=== PATIENT | female | born 1975 | race Caucasian/White ===

== ENCOUNTER → 2019-12-03 | Outpatient (CLI) | payer OTHER ==
--- NOTE | 2019-12-03 16:06 | KCIC ---
Bilateral digital screening mammograms: Reason for examination: Routine screening. Comparison is made to previous study dated 10/12/2014. Interpretation was made with the benefit of CAD. The skin and nipples show no abnormalities. No abnormal axillary lymph nodes are seen. The breast parenchyma is extremely dense. (Breast density: Category D.) There appears to be a new nodular parenchymal density centrally in the right breast on oblique view possibly at the retroareolar position 4.5 cm deep to the nipple. Recommend further evaluation with coned compression views and ultrasound. There continues to be a small circumscribed nodule anterior medially in the left breast which appears to be slightly smaller. There are no other dominant masses, suspicious calcifications or architectural distortion. Impression: New nodular density seen on the right oblique view possibly in the retroareolar position 4.5 cm deep to the nipple. Recommend further evaluation with coned compression views and ultrasound. Your patient's mammogram demonstrates that she has dense breast tissue (breast density category C or D), which could hide abnormalities, and if she has other risk factors for breast cancer that have been identified, she might benefit from supplemental screening tests that may be suggested by you as her ordering physician. Dense breast tissue, in and of itself, is a relatively common condition. Therefore, this information is not provided to cause undue concern, but rather to raise your awareness and to promote discussion with your patient regarding the presence of other risk factors, in addition to dense breast tissue. Your patient's mammography results will be sent to her. BI-RAD Category 0: Incomplete. Needs additional imaging evaluation. "Our facility is accredited by the [employer] Mammography [employer]." This patient's information has been entered into a reminder system for the patient to be notified with the results of her examination and a target date for the next mammogram. Electronically signed by: Felicia Lezama MD (12/03/2019 4:03 PM) [id number]
== END | disposition home or self-care (01) ==
LOC: KCIC MAMMO 14:35
PROVIDERS: ATTEND Obstetrics & Gynecology
DX: Z12.31 Encounter for screening mammogram for malignant neoplasm of breast (principal)
CPT/HCPCS: 77067

== ENCOUNTER → 2019-12-21 | Outpatient (CLI) | payer OTHER ==
--- NOTE | 2019-12-22 10:19 | RAD ---
Examination: BREAST RIGHT, DIGITAL DIAGNOSTIC RT History: Reason: Call Back Right Breast from screening Mamm 12-03-19 / [facility]. Instructions: / History: Comparison/Correlation: None Technique: Right unilateral digital diagnostic mammogram views were obtained. Rolled views in the mediolateral projection were obtained in addition spot compression imaging. Findings: Breast Tissue Density D :The breasts are extremely dense, which lowers the sensitivity of mammography. Persistence of distortion on spot compression imaging is noted. On rolled views, this appears to be at the 9:00 region. Limited right breast ultrasound exam was performed at the 9:00 region and retroareolar region was performed. Multiple cysts are present with the largest measuring up to 2.2 cm diameter. There is a hypoechoic mass 4 cm from the nipple measuring 0.27 cm x 0.26 cm x 0.27 cm. It has an irregular margin. It is in close proximity to the simple cyst seen 5 cm from the nipple in the 9:00 region. IMPRESSION: Right breast 9:00 irregular mass appear to correspond with mammographic findings BI-RADS Category 4: Suspicious. Ultrasound-guided core biopsy of the 9:00 region mass 4 cm from the nipple is recommended. Referring physicians office was contacted and a voicemail message regarding the recommendations was provided on 12/22/2019 at 10:15 AM. The images were reviewed with computer aided detection. Patient information is entered into the reminder system with a target due date for the next screening mammogram. Mammography is the most sensitive method for finding small breast cancers, but it does not detect them all and is not a substitute for careful clinical examination. A negative mammogram does not negate a clinically suspicious finding and should not result in delay in biopsying a clinically suspicious abnormality. "Our facility is accredited by the [employer] Mammography [employer]." Electronically signed by: Michael De Paz MD (12/22/2019 10:16 AM) [id number]
== END | disposition home or self-care (01) ==
LOC: MAMMO 09:20
PROVIDERS: ATTEND Obstetrics & Gynecology
DX: R92.2 Inconclusive mammogram (principal); N60.01 Solitary cyst of right breast
CPT/HCPCS: 76641; 77065

== ENCOUNTER → 2020-07-14 | Outpatient (CLI) | payer OTHER ==
--- NOTE | 2020-07-14 16:05 | RAD ---
Examination: 1. Bilateral digital diagnostic mammogram. 2. Limited bilateral breast ultrasound. INDICATION: 44-year-old woman presents for short-term follow-up postbiopsy changes in the right breas t and history of single episode left nipple discharge that was initially clear and then bloody that s he reports occurred in April 2020. No discharge since. No known trigger points and no areas of pal pable concern. COMPARISON: 12/03/2019 bilateral mammogram, 12/21/2019 right diagnostic mammogram and bilateral diagnos tic mammogram of 10/12/2014. Right breast ultrasound of 10/12/2014 and 04/14/2015. TECHNIQUE: Bilateral CC and MLO views were obtained with 2-D technique and reviewed with computer-aid ed detection. Targeted ultrasound of the bilateral breasts was also pursued. FINDINGS: Heterogeneously dense breast parenchyma. Right mammogram shows interval placement of a ribbon-shaped biopsy marker in the middle third lateral right breast. Asymmetry in the superior right breast seen on the cc view and previously evaluated by diagnostic mammography is less conspicuous in the interval. Both of these sites were targeted for ul trasound evaluation. Ultrasound right breast showed no suspicious sonographic findings in the superior right breast at the 12:00 position 4 cm from the nipple in the area of previously questioned asymmetry and no suspicious sonographic findings in the lateral right breast with circumscribed 3 mm parallel orientation oval m ass noted at the 9:00 position 4 cm from the nipple that contains low-level internal echoes and is co mpatible with a complicated cyst. Sonographically benign 9 mm cyst is identified at the right 9:00 po sition 5 cm from the nipple and an incidental 2.4 cm simple cyst is present in the 9:00 subareolar br east. No suspicious sonographic findings in the right breast. Sonographic survey of the right axilla revealed no adenopathy. Left mammogram shows a nodular parenchymal pattern compatible benign cystic change. There is nodulari ty in the medial left breast that is marginally more conspicuous in the interval, likely a function o f gradual involutional change dating back to 2014. No developing mass, architectural distortion or kuo spicious calcifications. Targeted ultrasound of the medial left breast reveals a circumscribed oval 9 mm mass at the 9:00 posi tion 4 cm from the nipple. This is sonographically benign. Sonographic survey of the left axilla reve aled no adenopathy. IMPRESSION: Benign findings in both breasts. No evidence of malignancy. BI-RADS Category 2 Benign findings Recommend clinical management of patient's complaints of spontaneous clear to bloody left nipple disc harge. I discussed with the patient that should this episode recur, she can occlude her nipple with n onabsorbable material and report these recurrent symptoms to her physician to decide on additional im aging evaluation, either galactography or preferably, breast MRI. In the absence of any recurrent sym ptoms, patient should return for routine screening next due in one year. Electronically signed by: Tani Guardado MD (07/14/2020 4:02 PM) [id number]
== END ==
LOC: MAMMO 13:14
PROVIDERS: ATTEND Surgery
DX: N60.02 Solitary cyst of left breast (principal); N63.13 Unspecified lump in the right breast, lower outer quadrant; N63.24 Unspecified lump in the left breast, lower inner quadrant
CPT/HCPCS: 77066; 76641-50

== ENCOUNTER → 2021-07-05 | Outpatient (CLI) | payer BC ==
--- NOTE | 2021-07-05 15:38 | RAD ---
Digital bilateral screening mammogram with tomography dated 07/05/2021. INDICATION: 45 years of age asymptomatic female patient presents for screening mammography. Screening TECHNIQUE: Full field craniocaudal and mediolateral oblique images of both breasts were obtained usi ng digital technique with tomosynthesis and also analyzed with computer-aided detection software. . COMPARISON: 02/02/2020 07/14/2020. BREAST COMPOSITION: Category C: The breast tissue is heterogeneously dense, which could obscure detec tion of small masses. FINDINGS: There are circumscribed nodules within both breasts that are similar to prior study, most consistent with cysts. No architectural distortion. No suspicious mass or clustered microcalcification. IMPRESSION: Stable circumscribed nodules throughout both breasts, most consistent with cysts. No new or suspicious findings. RECOMMENDATION: Annual screening mammography is recommended, unless clinically indicated sooner based on symptoms or change in physical exam. BIRADS 2: BENIGN This study was interpreted with the benefit of Computerized Aided Detection (CAD). Recommend routine screening in one year. Patient information is entered into the reminder system with a target due date for the next screening mammogram. Mammography is the most sensitive method for finding small breast cancers, but it does not detect the m all and is not a substitute for careful clinical examination. A negative mammogram does not negate a clinically suspicious finding and should not result in delay in biopsying a clinically suspicious a bnormality. "Our facility is accredited by the [employer] Mammography [employer]." Electronically signed by: Vishal Cruz MD (07/05/2021 3:36 PM) [id number]
== END ==
LOC: MAMMO 12:40
PROVIDERS: ATTEND Obstetrics & Gynecology
DX: Z12.31 Encounter for screening mammogram for malignant neoplasm of breast (principal); N63.10 Unspecified lump in the right breast, unspecified quadrant; N63.20 Unspecified lump in the left breast, unspecified quadrant
CPT/HCPCS: 77063; 77067